=== PATIENT | female | born 2000 | race Hispanic/Latino ===

== ENCOUNTER 2021-09-08 10:28 | Emergency (ER) | payer OTHER ==
[~2021-09-08] VITALS: Ht 154.9 cm; Wt 90.7 kg
[2021-09-08] MEDS ORDERED: ONDANSETRON HCL INJ 2MG/ML 2ML 2 MG/ML VIAL IV STA (10:51)
[2021-09-08 10:59] LABS: BASOPHILS % 0.5 % (0.0-1.0); EOSINOPHILS # (AUTO) 0.1 (0.0-0.4); EOSINOPHILS % 1.1 % (0.0-6.0); HEMATOCRIT 39.5 % (34.2-44.1); HEMOGLOBIN 12.3 g/dL (12.0-16.0); LYMPHOCYTES # (AUTO) 2.1 (1.0-3.2); MEAN CORPUSCULAR HEMOGLOBIN 28.7 pg (28-32); MEAN CORPUSCULAR HGB CONC 31.1 g/dL (31-35); MEAN CORPUSCULAR VOLUME 92.3 fL (81-99); MONOCYTES # (AUTO) 0.8 (0.2-0.8); MONOCYTES % 10.3 % (4.4-11.3); NEUTROPHILS # (AUTO) 4.5 (2.1-6.9); NEUTROPHILS % 59.8 % (38.7-80.0); PLATELET COUNT 232 x10e3/uL (140-360); RED BLOOD COUNT 4.28 x10e6/uL (3.6-5.1); RED CELL DISTRIBUTION WIDTH 17.3 % (11.7-14.4)
[2021-09-08] MEDS ORDERED: SODIUM CHLORIDE 0.9% 1000ML 1,000 ML IV SCH (11:00)
[2021-09-08] MEDS ORDERED: DIATRIZOATE MEGL/DIATRIZOA SOD 30 ML BTL PO ONE (11:07)
[2021-09-08] MEDS ORDERED: SODIUM CHLORIDE 0.9% 50ML 50 ML ONE (11:08)
[2021-09-08] MEDS ORDERED: IOPAMIDOL 370 MG/ML 200 ML INFUS..BTL INJ ONE (11:08)
[2021-09-08 11:28] LABS: LIPASE 51 U/L (8-78)
[2021-09-08 11:30] LABS: ALBUMIN 3.5 g/dL (3.5-5.0); ALBUMIN/GLOBULIN RATIO 1.1 (0.8-2.0); ANION GAP 21.9 mmol/L (8-16); CALCIUM 9.1 mg/dL (8.4-10.2); CREATININE, SERUM 0.7 mg/dL (0.57-1.11)
[2021-09-08 11:33] LABS: POTASSIUM 2.9 mmol/L (3.5-5.1)
[2021-09-08] MEDS ORDERED: POTASSIUM CHLORIDE 20MEQ/100ML 100 ML IV ONE (11:45)
[2021-09-08] MEDS ORDERED: HALOPERIDOL LACTATE 5 MG/ML VIAL IV ONE (12:00)
[2021-09-08] MEDS ORDERED: POTASSIUM CHLORIDE 20 MEQ TAB CR PO ONE (12:00)
[2021-09-08] MEDS ORDERED: KETOROLAC TROMETHAMINE 30 MG/ML VIAL IV ONE (12:30)
[2021-09-08] MEDS ORDERED: FLOMAX0.4 MG PO (13:23)
[2021-09-08] MEDS ORDERED: ULTRACET TABLE1 EACH PO (13:23)
== END 2021-09-08 13:40 | disposition home or self-care (01) ==
LOC: ER 10:36
DX: N20.0 Calculus of kidney (principal); E87.6 Hypokalemia; Z98.84 Bariatric surgery status
CPT/HCPCS: 36415; 74177; 80053; 80320; 83690; 84702; 85025; 99284; J1630; J2405; J3480; J7030; Q9967